=== PATIENT | female | born 1975 | race Caucasian/White ===

== ENCOUNTER 2019-11-29 09:04 | Outpatient (CLI) | payer MEDICARE, SELFPAY ==
--- NOTE | 2019-11-29 09:16 | US_ITS ---
WS: [id number] THYROID ULTRASOUND HISTORY: GOITER COMPARISON: 05/14/2019 Right lobe: 5.2 cm x 2.3 cm x 1.8 cm. Volume: 11.4 cm3. Enlarged heterogeneous nodular gland. Nodules are difficult to identify. The largest nodule is slight ly lobulated in the mid to lower thyroid measuring 2.2 x 1.3 x 1.4 cm. Margins are poorly visualized and there are a few scattered calcifications. The hypoechoic rim is not complete. Coarse ringlike nevaeh cification in a portion of the RIGHT thyroid nodule. Left lobe: 5.4 cm x 2.1 cm x 2.0 cm. Volume: 11.8 cm3. Enlarged heterogeneous gland with multiple ill-defined nodules. Solid nodule with increased periphera l vascularity in the mid to lower thyroid measures 2.0 x 1.5 x 2.0 cm. Shadowing calcification in the LEFT thyroid nodule. Not significantly increased in size since the prior study. Isthmus: 4 mm. US/US soft tissue head neck [id number] IMPRESSION: 1. Bilateral lower pole solid thyroid nodules. These nodules are suspicious fo r malignancy, especially the nodule on the RIGHT. Recommend ultrasound-guided fine-needle aspiration. The LEFT thyroid nodule may be more difficult to biopsy as there is significantly increased peripheral vascularity circumferentially a round the nodule. 2. Thyroid enlargement consistent with a goiter.
== END 2019-11-29 09:05 | disposition home or self-care (01) ==
LOC: RAD 09:10
PROVIDERS: Family Provider Physician Assistant Medical; PCP Physician Assistant Medical; Visit Provider Physician Assistant Medical
DX: E04.9 Nontoxic goiter, unspecified (principal); E04.2 Nontoxic multinodular goiter
CPT/HCPCS: 76536

== ENCOUNTER 2020-11-10 10:46 | Outpatient (CLI) | payer MEDICARE, SELFPAY ==
--- NOTE | 2020-11-10 10:51 | MM_ITS ---
WS: [id number] Bilateral screening digital mammogram, 11/10/2020 Clinical Data: SCREENING Comparison: 10/28/2019, 09/22/2018, 09/09/2017, 08/29/2016, 12/02/2014, a 22/03/2011, 01/11/2010, 9, 05/26/2009, 05/22/2007. Findings: The breast parenchymal pattern shows fibroglandular tissue No spiculated masses or clustered calcific ations are seen. There are no secondary signs of carcinoma. MM/[place] [id number] Impression: 1. Negative bilateral mammogram unchanged. 2. Recommend annual screening mammograms. BIRADS: 1-Negative FOLLOW UP: 1 Year Follow-up The CAD billet checker was used.
== END 2020-11-10 10:47 | disposition home or self-care (01) ==
LOC: RADSHAW 10:49
PROVIDERS: PCP Physician Assistant Medical; Visit Provider Physician Assistant Medical
DX: Z12.31 Encounter for screening mammogram for malignant neoplasm of breast (principal)
CPT/HCPCS: 77067

== ENCOUNTER 2022-01-25 07:56 | Outpatient (CLI) | payer MEDICARE, SELFPAY ==
--- NOTE | 2022-01-25 08:08 | MM_ITS ---
WS: [id number] Bilateral screening 3D tomosynthesis digital mammogram, 01/25/2022 Clinical Data: SCREENING Comparison: 11/10/2020, 10/28/2019, 09/22/2018, 09/09/2017, 08/29/2016, 12/02/2014, 06/27/2011, 01/11/2010, 07/07/2009, 05/26/2009. Findings: The breast parenchymal pattern shows fibroglandular tissue No spiculated masses or clustered calcific ations are seen. There are no secondary signs of carcinoma. MM/[place] [id number] Impression: 1. Negative bilateral mammogram unchanged. 2. Recommend annual screening mammograms. BIRADS: 1-Negative FOLLOW UP: 1 Year Follow-up The CAD raspberry checker was used.
== END 2022-01-25 07:57 | disposition home or self-care (01) ==
PROVIDERS: PCP Registered Nurse; Visit Provider Registered Nurse
DX: Z12.31 Encounter for screening mammogram for malignant neoplasm of breast (principal)
CPT/HCPCS: 77063; 77067

== ENCOUNTER → 2022-11-06 13:55 | Outpatient (BNVA) | payer MEDICARE, MEDICAID, SELFPAY | PROVIDERS: PCP Registered Nurse; Referring Provider Registered Nurse; Visit Provider Orthopaedic Surgery | DX: M75.101 Unspecified rotator cuff tear or rupture of right shoulder, not specified as traumatic (principal) | CPT/HCPCS: 99203 ==

== ENCOUNTER 2022-11-21 05:22 | Day surgery (SDC) | payer MEDICARE, MEDICAID, SELFPAY ==
[2022-11-20 15:18] VITALS: BMI 41.1
[2022-11-21] VITALS (12 sets, daily range): BP systolic 117–231; BP diastolic 69–114; PULSE 89–106; RESP 15–18; TEMP 36.4–36.9; O2SAT 92–100
[2022-11-21] MEDS: sodium chloride 0.9% 1,000 ML 30 ML IV (06:19)
[2022-11-21 06:21] LABS: Glucose Point of Care 190 mg/dL (70-110)
--- NOTE | 2022-11-21 07:08 | W.PM.OPSUD ---
Surgery/Procedure H&P Update DATE OF PROCEDURE: November 21, 2022 DATE H&P PERFORMED: 11/06/22 H&P UPDATE INFORMATION: I have reviewed H&P completed within last 30 days PREOP DIAGNOSIS: Rotator cuff tear right shoulder PLANNED PROCEDURE: Operation Date: 11/21/22 07:00 Proposed Procedures p arthroscopic rotator cuff repair right shoulder/40807,M75.101(Right) - Eddi Durant MD
[2022-11-21] MEDS: ceFAZolin 2,000 MG in sodium chloride 0.9% (plus) 50 ML 100 MG IV (07:15)
[2022-11-21 07:26] LABS: OR HCG Qualitative Urine Negative (Negative)
--- NOTE | 2022-11-21 08:19 | ANES.PREANE2 ---
Pre-Anesthetic Assessment Height/Weight: Height 1.63 m Weight 108.862 kg Temp Pulse Resp BP Pulse Ox O2 Del Method 98.5 F 89 18 146/94 94 11/21/22 06:10 11/21/22 06:10 11/21/22 06:10 11/21/22 06:10 11/21/22 06:10 11/21/22 06:10 Preop Diagnosis: Rotator cuff tear right shoulder Operation Date: 11/21/22 07:00 Proposed Procedures p arthroscopic rotator cuff repair right shoulder/64745,M75.101(Right) - Eddi Durant MD Familial anesthetic complications: none Was Beta Alicia taken within 24 hours: N/A Was Clonidine taken within 24 hours: N/A Last intake: Intake Last Liquid Date 11/20/22 Last Liquid Time 19:45 Last Solid Date 11/20/22 Last Solid Time 19:45 Social No alcohol and No tobacco Exam alert, oriented x 3, clear to auscultation bilaterally and regular rate & rhythm Airway Submandibular: within normal limits Cervical ROM: within normal limits Mallampati: Class II Dentition: full CV/HEM Hypertension GI Gastroesophageal Reflux Disease Metabolic Diabetes Mellitus and Morbid Obesity [facility] [place] Osteoarthritis/DJD Anesthetic Plan ASA status: 3 Anesthesia: General and Regional (specify below) (right interscalene nerve blk) Medications/Allergies Home Medications Medication Instructions Recorded Confirmed Last Taken Type cetirizine 10 mg capsule (All Day 10 mg PO DAILY PRN Allergy Symptoms 11/06/22 11/21/22 11/20/22 History Allergy (cetirizine)) famotidine 20 mg tablet 20 mg PO DAILY 11/06/22 11/21/22 11/20/22 History gabapentin 300 mg capsule 300 mg PO DAILY 11/06/22 11/20/22 11/20/22 History glipizide 5 mg tablet 5 mg PO BID 11/06/22 11/20/22 11/20/22 History losartan 50 mg tablet 50 mg PO DAILY 11/06/22 11/20/22 11/20/22 History lovastatin 10 mg tablet 10 mg PO DAILY 11/06/22 11/20/22 11/20/22 History metformin 1,000 mg tablet 1,000 mg PO DAILY 11/06/22 11/20/22 11/20/22 History omeprazole 20 mg capsule,delayed 20 mg PO DAILY 11/06/22 11/20/22 11/20/22 History release oxybutynin chloride 10 mg 10 mg PO DAILY 11/06/22 11/20/22 11/20/22 History tablet,extended release 24 hr semaglutide 1 mg/dose (2 mg/1.5 mg SUBCUT 11/06/22 11/06/22 11/16/22 History mL) subcutaneous pen injector (Ozempic) sertraline 50 mg tablet 50 mg PO DAILY 11/06/22 11/20/22 11/20/22 History sitagliptin phosphate 50 mg tablet 50 mg PO DAILY 11/06/22 11/20/22 11/20/22 History (Januvia) tizanidine 2 mg capsule 2 mg PO Q8H PRN Muscle Spasm 11/06/22 11/20/22 Unknown History trazodone 100 mg tablet 100 mg PO DAILY 11/06/22 11/20/22 11/20/22 History Allergies Allergy/AdvReac Type Severity Reaction Status Date / Time codeine Allergy nausea Verified 11/06/22 14:40 Current Medications Generic Name Dose Route Start Last Admin Trade Name Freq PRN Reason Stop Dose Admin Sodium Chloride 1,000 mls @ 30 mls/hr 11/21/22 06:00 11/21/22 06:19 Sodium Chloride 0.9% IV 11/22/22 05:59 30 mls/hr .Q24H DIANA Administration Data Anesthesia Cardiac Studies: No Data to Display Anesthesia Procedures Nerve Block Nerve Block 1: Main Anesthesia: general anesthesia Time Out Performed: Yes Consent: requested by attending/covering physician, from patient, risks and benefits reviewed and patient agrees to proceed Nerve block location: interscalene (right) Anesthesia monitors applied: pulse oximetry Anesthetic Used: ropivicaine 0.5% Amount of anesthesia used (mL): 30 Ultrasound used to: recognize landmarks Nerve Stimulator Used?: No Interscalene/Femoral BLK: 2 stimuplex 22 g needle used for position and inplane approach Injection: neg aspiration of heme Patient Tolerated Procedure: well Complications: none
--- NOTE | 2022-11-21 09:25 | P.OP_ITS ---
Operative Report Date of procedure: November 21, 2022 Pre-op diagnosis: Preop Diagnosis Rotator cuff tear right shoulder, impingement Post-op diagnosis: same Procedure done: Arthroscopic repair rotator cuff and subacromial decompression right shoulder Implants: [employer] Helicoil 5.5 mm anchors x2, [employer] Multifix 5.5 mm anchors x2 Pathology: none sent Surgeon: Eddi Durant Anesthesia: General and Nerve Block (Interscalene) Estimated blood loss (mL): 10 Complications: None Findings: The patient had a large tear of the right rotator cuff approximately 2 cm from anterior to posterior with a centimeter and a half of retraction. Tendon and bone quality was excellent and the tendon itself was quite mobile. She had prominent subacromial spurring Condition: stable Disposition: PACU Procedure: The patient was taken to the operating room after an interscalene block was provided by anesthesia. She was given 2 g of Ancef. She was prepped and draped in the lateral position with the right arm in 15 pounds of traction. A timeout was performed. The shoulder was entered through a posterior portal made 2 cm inferior medial to the posterior corner of the acromion. A scope cannula and trocar were driven into the glenohumeral joint. 8 mm inflow cannula was placed anteriorly. The diagnostic portion of the arthroscopy was performed. The biceps tendon appeared healthy and stable in the bicipital groove. The labrum was free of tearing. The humeral head and glenoid were free of chondromalacia. A large tear involving nearly the entirety of the supraspinatus tendon was identified. The scope was then directed to the subacromial space. A lateral portal was opened with a scalpel blade and working through that portal the [employer] Werewolf probe was used to remove subacromial bursal issue and adhesions. Debridement was then accomplished on the articular side of the cuff to the point where the supraspinatus tendon could be easily mobilized. There is seem to be a very reasonable amount of healthy tendon for repair and sufficient mobility such that a double row repair could be performed. Spurring on the leading edge of acromion was outlined and a subacromial decompression was performed to make more room for the repair. Working through the lateral portal, a 5.5 mm acromionizer was used to remove approximately 5 mm of anterior and inferior acromion, conver ting the acromion to a type I morphology. The greater tuberosity was debrided to make a vascular bed for repair next a lateral stab wound was made just lateral to the edge of the acromion. A awl was passed and a Yun [employer]hew Helicoil 5.5 mm anchor was paced in the posterior medial footprint on the greater tuberosity. A Yun and [employer] FirstPass suture passer was used to shuttle 1 tape through the posterior rotator cuff approximately 8 mm from the edge. The free suture was then passed approximately 6 mm anterior to the first. A second anchor was placed in the anterior medial cuff and 2 sutures passed in identical fashion. They were secured with a sliding Blunt knot and a half hitch bring in the medial cuff to bone. Next 1 suture from each anchor was passed through our lateral cannula. An awl was passed over the posterior lateral greater tuberosity and a MultiFix anchor placed to sutures were secured to that anchor drawing the lateral rotator cuff down to lateral debrided tuberosity. This was repeated anteriorly with the remaining 2 sutures drawing the anterior cuff down to the tuberosity. The repair was visualized and found to be stable. Portals were closed with 3-0 Prolene. Sterile dressings were applied. The patient was placed in a sling, extubated, and taken to recovery room in stable condition.
--- NOTE | 2022-11-21 11:19 | SUR.PHASEII ---
Post-op Site Bleeding Patient had post-op bleeding through dressing. Area was marked in PACU by this nurse. When patient was dressing to go home, more bleeding was noted and was soaking through dressing onto clothes. Dr. Durant was notified, came to evaluate and reapplied new dressing. Patient tolerated well, verbalized no pain. VSS. Patient given instructions if bleeding continues at home. Discharge instructions given to patient and family.
--- NOTE | 2022-11-21 15:13 | ANE.PACU2 ---
Inpatient post-anesthesia follow up: Airway intact: Yes Vital signs: Temperature 98.2 F Pulse Rate 89 Respiratory Rate 18 Blood Pressure 130/79 Pulse Oximetry 92 Oxygen Delivery Me thod Room Air Oxygen Flow Rate 6 Fraction of Inspir ed Oxygen Hydration adequate: Yes Nausea and vomiting: No Pain level: 1 Mental status: Baseline
== END 2022-11-21 11:15 | disposition home or self-care (01) ==
PROVIDERS: Anesthesiology; PCP Registered Nurse; Visit Provider Orthopaedic Surgery
PROC: (CPT 29805; principal; 2022-11-21 07:00)
DX: M75.41 Impingement syndrome of right shoulder (principal); M75.101 Unspecified rotator cuff tear or rupture of right shoulder, not specified as traumatic; I10 Essential (primary) hypertension; K21.9 Gastro-esophageal reflux disease without esophagitis; E11.9 Type 2 diabetes mellitus without complications; E66.01 Morbid (severe) obesity due to excess calories; Z68.41 Body mass index [BMI] 40.0-44.9, adult; M19.90 Unspecified osteoarthritis, unspecified site
CPT/HCPCS: 29826; 29827; 36416; 81025; 82962; 84703; C1713; J0690; J1100; J1170; J2405; J2704; J2795; J3010; J3490; J7030

== ENCOUNTER → 2022-12-04 10:17 | Outpatient (BNVA) | payer MEDICARE, MEDICAID, SELFPAY | PROVIDERS: PCP Registered Nurse; Visit Provider Orthopaedic Surgery | DX: Z98.890 Other specified postprocedural states (principal) | CPT/HCPCS: 99024 ==

== ENCOUNTER 2022-12-25 07:29 | Outpatient (RCR) | payer MEDICARE, MEDICAID, SELFPAY | END 2022-12-31 23:59 | disposition home or self-care (01) | LOC: SPT 07:29 | PROVIDERS: PCP Registered Nurse; Visit Provider Orthopaedic Surgery | DX: M75.111 Incomplete rotator cuff tear or rupture of right shoulder, not specified as traumatic (principal); M25.611 Stiffness of right shoulder, not elsewhere classified; M25.511 Pain in right shoulder | CPT/HCPCS: 97110; 97161 ==

== ENCOUNTER 2023-01-01 06:00 | Outpatient (RCR) | payer MEDICARE, MEDICAID, SELFPAY | END 2023-01-31 23:59 | disposition home or self-care (01) | LOC: SPT 06:00 | PROVIDERS: PCP Registered Nurse; Visit Provider Orthopaedic Surgery | DX: Z98.890 Other specified postprocedural states (principal) | CPT/HCPCS: 97110; 99024 ==

== ENCOUNTER → 2023-01-29 09:46 | Outpatient (BNVA) | payer MEDICARE, MEDICAID, SELFPAY | PROVIDERS: PCP Registered Nurse; Visit Provider Orthopaedic Surgery | DX: Z98.890 Other specified postprocedural states (principal) | CPT/HCPCS: 99024; 99212 ==

== ENCOUNTER 2023-01-31 11:39 | Outpatient (CLI) | payer MEDICARE, MEDICAID, SELFPAY ==
--- NOTE | 2023-01-31 11:50 | MM_ITS ---
WS: [id number] SCREENING DIGITAL BREAST TOMOSYNTHESIS MAMMOGRAM WITH CAD HISTORY: SCREENING COMPARISON: 01/25/2022, 11/10/2020 Bilateral CC and MLO with tomosynthesis and synthetic mammography submitted. Computer aided detection analyzed. Breast composition: There are scattered areas of fibroglandular density. Asymmetry anterior RIGHT monica ast measures 7.6 mm. This is just lateral to the nipple and seen only on the CC projection with certa inty. Otherwise no abnormalities. Very difficult imaging of the breast due to body habitus. MM/[place] [id number] IMPRESSION: BI-RADS: 0-Incomplete: Need additional imaging evaluation FOLLOW UP: Need Additional Imaging RIGHT breast: Spot compression views (CC ). True ML. Ultrasound to follow if ab normality persists.
== END 2023-01-31 11:40 | disposition home or self-care (01) ==
LOC: RAD 11:46
PROVIDERS: PCP Registered Nurse; Visit Provider Registered Nurse
DX: Z12.31 Encounter for screening mammogram for malignant neoplasm of breast (principal)
CPT/HCPCS: 77063; 77067

== ENCOUNTER 2023-02-14 12:41 | Outpatient (CLI) | payer MEDICARE, MEDICAID, SELFPAY ==
--- NOTE | 2023-02-14 13:10 | MM_ITS ---
WS: [id number] ADDITIONAL VIEWS RIGHT MAMMOGRAM WITH DIGITAL BREAST TOMOSYNTHESIS. HISTORY: Asymmetry seen on screening mammogram. COMPARISON: 09/22/2018, 01/31/2023 and 01/25/2022 Spot compression views RIGHT breast in CC and true ML submitted with digital breast tomosynthesis and SM. Asymmetry nearly completely resolves and is now more similar to prior studies. There are no suspiciou s masses or distortion. MM/[place] [id number] IMPRESSION: BI-RADS: 2-Benign FOLLOW UP: 1 Year Follow-up Return to annual screening mammography.
== END 2023-02-14 12:42 | disposition home or self-care (01) ==
PROVIDERS: PCP Registered Nurse; Visit Provider Registered Nurse
DX: R92.8 Other abnormal and inconclusive findings on diagnostic imaging of breast (principal)
CPT/HCPCS: 77061; G0279

== ENCOUNTER → 2023-04-08 08:45 | Outpatient (BNVA) | payer MEDICARE, SELFPAY | PROVIDERS: PCP Registered Nurse; Visit Provider Podiatrist Foot & Ankle Surgery | DX: M21.611 Bunion of right foot (principal); M21.612 Bunion of left foot; E11.42 Type 2 diabetes mellitus with diabetic polyneuropathy; M20.12 Hallux valgus (acquired), left foot; M20.11 Hallux valgus (acquired), right foot; L84 Corns and callosities; Z79.84 Long term (current) use of oral hypoglycemic drugs | CPT/HCPCS: 73630; 99204 ==

== ENCOUNTER → 2023-06-10 13:19 | Outpatient (BNVA) | payer MEDICARE, MEDICAID, SELFPAY | PROVIDERS: PCP Registered Nurse; Visit Provider Podiatrist Foot & Ankle Surgery | DX: E11.8 Type 2 diabetes mellitus with unspecified complications (principal); E11.42 Type 2 diabetes mellitus with diabetic polyneuropathy; M20.12 Hallux valgus (acquired), left foot; M20.11 Hallux valgus (acquired), right foot; Z79.84 Long term (current) use of oral hypoglycemic drugs | CPT/HCPCS: 11721; 99213 ==

== ENCOUNTER → 2023-08-22 07:44 | Outpatient (BNVA) | payer MEDICARE, MEDICAID, SELFPAY | PROVIDERS: PCP Registered Nurse; Visit Provider Podiatrist Foot & Ankle Surgery | DX: L60.3 Nail dystrophy (principal); E11.42 Type 2 diabetes mellitus with diabetic polyneuropathy; M20.12 Hallux valgus (acquired), left foot; M20.11 Hallux valgus (acquired), right foot; Z79.84 Long term (current) use of oral hypoglycemic drugs | CPT/HCPCS: 11721 ==

== ENCOUNTER → 2023-11-17 10:26 | Outpatient (BNVA) | payer MEDICARE, MEDICAID, SELFPAY | PROVIDERS: PCP Registered Nurse; Visit Provider Podiatrist Foot & Ankle Surgery | DX: L60.3 Nail dystrophy (principal); E11.42 Type 2 diabetes mellitus with diabetic polyneuropathy; M20.12 Hallux valgus (acquired), left foot; M20.11 Hallux valgus (acquired), right foot; Z79.84 Long term (current) use of oral hypoglycemic drugs | CPT/HCPCS: 11721 ==

== ENCOUNTER → 2024-01-26 09:46 | Outpatient (BNVA) | payer OTHER, MEDICAID, SELFPAY | PROVIDERS: PCP Registered Nurse; Visit Provider Podiatrist Foot & Ankle Surgery | DX: L60.3 Nail dystrophy (principal); E11.42 Type 2 diabetes mellitus with diabetic polyneuropathy; M20.12 Hallux valgus (acquired), left foot; M20.11 Hallux valgus (acquired), right foot; Z79.84 Long term (current) use of oral hypoglycemic drugs | CPT/HCPCS: 11721 ==

== ENCOUNTER 2024-03-10 10:16 | Outpatient (CLI) | payer OTHER, MEDICAID, SELFPAY ==
--- NOTE | 2024-03-10 09:30 | MM_ITS ---
WS: [id number] BILATERAL SCREENING DIGITAL TOMOSYNTHESIS MAMMOGRAM WITH CAD HISTORY: SCREENING COMPARISON: None available. Bilateral CC and MLO views with tomosynthesis and synthetic mammography submitted. Computer aided det ection analyzed. Technically difficult exam. Breast composition: There are scattered areas of fibroglandular density. No suspicious masses, microc alcifications or architectural distortion. MM/[place] [id number] IMPRESSION: BI-RADS: 1-Negative FOLLOW UP: 1 Year Follow-up
== END 2024-03-10 10:17 | disposition home or self-care (01) ==
LOC: MOBLMAM 10:24
PROVIDERS: PCP Registered Nurse; Visit Provider Registered Nurse
DX: Z12.31 Encounter for screening mammogram for malignant neoplasm of breast (principal)
CPT/HCPCS: 77063; 77067

== ENCOUNTER → 2024-04-08 14:46 | Outpatient (BNVA) | payer OTHER, MEDICAID, SELFPAY | PROVIDERS: PCP Registered Nurse; Visit Provider Podiatrist Foot & Ankle Surgery | DX: B35.3 Tinea pedis (principal); L60.3 Nail dystrophy; E11.42 Type 2 diabetes mellitus with diabetic polyneuropathy; M20.12 Hallux valgus (acquired), left foot; M20.11 Hallux valgus (acquired), right foot; Z79.84 Long term (current) use of oral hypoglycemic drugs | CPT/HCPCS: 11721; 99213 ==

== ENCOUNTER → 2024-08-12 13:51 | Outpatient (BNVA) | payer OTHER, MEDICAID, SELFPAY | PROVIDERS: PCP Registered Nurse; Visit Provider Podiatrist Foot & Ankle Surgery | DX: L60.3 Nail dystrophy (principal); E11.42 Type 2 diabetes mellitus with diabetic polyneuropathy; M20.12 Hallux valgus (acquired), left foot; M20.11 Hallux valgus (acquired), right foot; Z79.84 Long term (current) use of oral hypoglycemic drugs | CPT/HCPCS: 11721 ==

== ENCOUNTER → 2024-10-14 09:44 | Outpatient (BNVA) | payer OTHER, MEDICAID, SELFPAY | PROVIDERS: PCP Registered Nurse; Visit Provider Podiatrist Foot & Ankle Surgery | DX: L60.3 Nail dystrophy (principal); E11.42 Type 2 diabetes mellitus with diabetic polyneuropathy; M20.12 Hallux valgus (acquired), left foot; M20.11 Hallux valgus (acquired), right foot; Z79.84 Long term (current) use of oral hypoglycemic drugs | CPT/HCPCS: 11721 ==

== ENCOUNTER → 2024-12-21 10:07 | Outpatient (BNVA) | payer OTHER, SELFPAY | PROVIDERS: PCP Registered Nurse; Visit Provider Podiatrist Foot & Ankle Surgery | DX: E11.42 Type 2 diabetes mellitus with diabetic polyneuropathy (principal); L60.3 Nail dystrophy; L84 Corns and callosities; M20.12 Hallux valgus (acquired), left foot; M20.11 Hallux valgus (acquired), right foot; Z79.84 Long term (current) use of oral hypoglycemic drugs | CPT/HCPCS: 11056; 11721 ==

== ENCOUNTER → 2025-02-22 10:28 | Outpatient (BNVA) | payer OTHER, SELFPAY | PROVIDERS: PCP Registered Nurse; Visit Provider Podiatrist Foot & Ankle Surgery | DX: E11.42 Type 2 diabetes mellitus with diabetic polyneuropathy (principal); L60.3 Nail dystrophy; L84 Corns and callosities; M20.12 Hallux valgus (acquired), left foot; M20.11 Hallux valgus (acquired), right foot; Z79.84 Long term (current) use of oral hypoglycemic drugs | CPT/HCPCS: 11056; 11721; 99214 ==

== ENCOUNTER 2025-04-13 10:00 | Outpatient (CLI) | payer OTHER, SELFPAY ==
--- NOTE | 2025-04-13 10:00 | MM_ITS ---
WS: [id number] BILATERAL SCREENING DIGITAL TOMOSYNTHESIS MAMMOGRAM WITH CAD HISTORY: SCREENING COMPARISON: 03/10/2024, 02/14/2023 Bilateral CC and MLO views with tomosynthesis and synthetic mammography submitted. Computer aided detection analyzed. Breast composition: There are scattered areas of fibroglandular density. No suspicious masses, microcalcifications or architectural distortion. Scattered benign calcifications within each breast. MM/MM scr BI tomosynthesis [id number] IMPRESSION: BI-RADS: 2 - Benign. FOLLOW UP: 1 Year Follow-up
== END 2025-04-13 10:01 | disposition home or self-care (01) ==
PROVIDERS: PCP Registered Nurse; Visit Provider Registered Nurse
DX: Z12.31 Encounter for screening mammogram for malignant neoplasm of breast (principal); R92.323 Mammographic fibroglandular density, bilateral breasts; R92.1 Mammographic calcification found on diagnostic imaging of breast
CPT/HCPCS: 77063; 77067

== ENCOUNTER → 2025-04-26 11:16 | Outpatient (BNVA) | payer OTHER, SELFPAY | PROVIDERS: PCP Registered Nurse; Visit Provider Podiatrist Foot & Ankle Surgery | DX: E11.42 Type 2 diabetes mellitus with diabetic polyneuropathy (principal); L60.3 Nail dystrophy; M20.12 Hallux valgus (acquired), left foot; M20.11 Hallux valgus (acquired), right foot; Z79.84 Long term (current) use of oral hypoglycemic drugs | CPT/HCPCS: 11721 ==

== ENCOUNTER → 2025-05-25 09:22 | Outpatient (BNVA) | payer OTHER, SELFPAY | PROVIDERS: PCP Registered Nurse; Visit Provider Podiatrist Foot & Ankle Surgery | DX: S92.515A Nondisplaced fracture of proximal phalanx of left lesser toe(s), initial encounter for closed fracture (principal); L60.3 Nail dystrophy; E11.42 Type 2 diabetes mellitus with diabetic polyneuropathy; M20.12 Hallux valgus (acquired), left foot; M20.11 Hallux valgus (acquired), right foot; X58.XXXA Exposure to other specified factors, initial encounter; Z79.84 Long term (current) use of oral hypoglycemic drugs | CPT/HCPCS: 28510; 99214 ==

== ENCOUNTER → 2025-07-07 11:01 | Outpatient (BNVA) | payer OTHER, SELFPAY | PROVIDERS: PCP Registered Nurse; Visit Provider Podiatrist Foot & Ankle Surgery | DX: E11.42 Type 2 diabetes mellitus with diabetic polyneuropathy (principal); L60.3 Nail dystrophy; M20.12 Hallux valgus (acquired), left foot; M20.11 Hallux valgus (acquired), right foot; Z79.84 Long term (current) use of oral hypoglycemic drugs | CPT/HCPCS: 11721 ==

== ENCOUNTER → 2025-07-29 08:27 | Outpatient (BNVA) | payer OTHER, SELFPAY | PROVIDERS: PCP Registered Nurse; Visit Provider Podiatrist Foot & Ankle Surgery | DX: L60.0 Ingrowing nail (principal); L60.3 Nail dystrophy; E11.42 Type 2 diabetes mellitus with diabetic polyneuropathy; Z79.84 Long term (current) use of oral hypoglycemic drugs; Z79.85 Long-term (current) use of injectable non-insulin antidiabetic drugs | CPT/HCPCS: 11750; 99214; A6219; J9999 ==

== ENCOUNTER → 2025-08-11 10:57 | Outpatient (BNVA) | payer OTHER, SELFPAY | PROVIDERS: PCP Registered Nurse; Visit Provider Podiatrist Foot & Ankle Surgery | DX: E11.42 Type 2 diabetes mellitus with diabetic polyneuropathy (principal); L60.3 Nail dystrophy; L60.0 Ingrowing nail; Z79.84 Long term (current) use of oral hypoglycemic drugs | CPT/HCPCS: 99213 ==

== ENCOUNTER → 2025-09-20 10:54 | Outpatient (BNVA) | payer OTHER, SELFPAY | PROVIDERS: PCP Registered Nurse; Visit Provider Podiatrist Foot & Ankle Surgery | DX: E11.8 Type 2 diabetes mellitus with unspecified complications (principal); L60.3 Nail dystrophy; E11.42 Type 2 diabetes mellitus with diabetic polyneuropathy; Z79.84 Long term (current) use of oral hypoglycemic drugs | CPT/HCPCS: 11056; 11721 ==